=== PATIENT | female | born 1950 | race Hispanic/Latino ===

== ENCOUNTER 2025-06-28 09:57 | Inpatient (IN) | payer OTHER ==
[2025-06-28 10:54] LABS: #Basophils 0.04 10x3/uL (0.0-0.2); #Eosinophils 0.20 10x3/uL (0.0-0.7); #Monocytes 0.49 10x3/uL (0.11-0.59); #Neutrophils 3.78 10x3/uL (1.40-6.50); %Basophils 0.6 % (0.0-1.0); %Eosinophils 3.2 % (0.0-10.0); %Lymphocytes 27.2 % (21.0-51.0); %Monocytes 7.9 % (0.0-10.0); %Neutrophils 60.9 % (42.0-75.0); Hematocrit 40.3 % (36.0-47.0); Hemoglobin 13.2 g/dL (12.0-16.0); Mean Corpuscular Hemoglobin 26.0 pg (27.0-31.0); Mean Corpuscular Volume 79.5 fL (78.0-98.0); Platelet Count 198 10x3/uL (130-400); Red Blood Cell (RBC) Count 5.07 mill/uL (4.20-5.40); White Blood Cell (WBC) Count 6.21 10x3/uL (4.8-10.8)
[2025-06-28 11:16] LABS: ALT (SGPT) 19 U/L (Less than 34); AST (SGOT) 39 U/L (11-34); Albumin 2.9 g/dL (3.1-4.5); Alkaline Phosphatase 103 U/L (40-110); Anion Gap 14 mmol/L (10-20); BUN (Urea Nitrogen) 9 mg/dL (9.8-20.1); Bilirubin, Total 0.8 mg/dL (0.3-1.2); Calc. Creatinine Clearance 0 mL/min (70-130); Calcium 8.4 mg/dL (7.8-10.44); Carbon Dioxide 31 mmol/L (23-31); Chloride 101 mmol/L (98-107); Globulin 4.2 g/dL (2.4-3.5); Glucose 174 mg/dL (83-110); Magnesium 1.4 mg/dL (1.6-2.6); Potassium 2.4 mmol/L (3.5-5.1); Sodium 144 mmol/L (136-145)
[2025-06-28 11:20] LABS: Troponin I 0.026 ng/mL (< 0.028)
[2025-06-28] MEDS ORDERED: Magnesium 2 GM/50 ML BAG (IN WATER) ONE (11:47)
[2025-06-28] MEDS ORDERED: hydrALAZINE 20 MG/ML VIAL ONE (12:16)
[2025-06-28] MEDS ORDERED: NS 0.9% w/ 20 MEQ KCL 1,000 ML ONE (12:17)
[2025-06-28] MEDS ORDERED: Iopamidol-370 76% 500 ML MDV (1 ML CHARGE) ONE (12:54)
[2025-06-28] MEDS ORDERED: Acetaminophen 325 MG TAB PO PRN ×2 (13:01→13:57)
[2025-06-28] MEDS ORDERED: Ondansetron PF 4 MG/2 ML Vial IVP PRN (13:01)
[2025-06-28] MEDS ORDERED: Electrolyte Replacement Protocol 1 EACH FS SCH (13:15)
[2025-06-28] MEDS ORDERED: Glucagon 1 MG/ML KIT IM PRN (13:56)
[2025-06-28] MEDS ORDERED: Dextrose 50% Abboject 50 ML SYRINGE SLOW IVP PRN (13:56)
[2025-06-28 15:05] VITALS: BMI 23.8
[2025-06-28] MEDS: NIFEdipine XL 30 MG ER.TAB PO SCH ×2 (15:06→21:35)
[2025-06-28] MEDS ORDERED: Losartan 25 MG TAB ONE (15:08)
[2025-06-28] MEDS: Losartan 25 MG TAB PO SCH (15:10)
[2025-06-28 20:18] LABS: Anion Gap 12 mmol/L (10-20); BUN (Urea Nitrogen) 7 mg/dL (9.8-20.1); Calc. Creatinine Clearance 88 mL/min (70-130); Calcium 8.2 mg/dL (7.8-10.44); Carbon Dioxide 28 mmol/L (23-31); Chloride 105 mmol/L (98-107); Glucose 229 mg/dL (83-110); Magnesium 1.5 mg/dL (1.6-2.6); Potassium 3.0 mmol/L (3.5-5.1); Sodium 142 mmol/L (136-145)
[2025-06-28] MEDS: Famotidine/PF 20 mg/2ml Vial SLOW IVP SCH (21:28)
[2025-06-28] MEDS: Famotidine 20 MG TAB PO SCH (21:35)
[2025-06-28] MEDS: Naproxen 500 MG TAB PO PRN (22:13)
[2025-06-28 22:42] LABS: Bacteria/HPF 2+ HPF (None Seen); Glucose, Urine (Dipstick) 70 mg/dL (Negative); Leukocyte Negative Leu/uL (Negative); Protein, Urine (Dipstick) 30 mg/dL (Neg-Trace); RBC/HPF 0-3 HPF (0-3); Specific Gravity, Urine 1.021 (1.002-1.036); WBC/HPF 0-3 HPF (0-3)
[2025-06-29 04:39] LABS: Anion Gap 9 mmol/L (10-20); BUN (Urea Nitrogen) 7 mg/dL (9.8-20.1); Calc. Creatinine Clearance 102 mL/min (70-130); Calcium 7.5 mg/dL (7.8-10.44); Carbon Dioxide 29 mmol/L (23-31); Chloride 107 mmol/L (98-107); Glucose 132 mg/dL (83-110); Magnesium 1.4 mg/dL (1.6-2.6); Potassium 3.1 mmol/L (3.5-5.1); Sodium 142 mmol/L (136-145)
[2025-06-29] MEDS: Magnesium Sulfate In Water 4 GM in Premix 1 BAG IVPB SCH (08:16)
[2025-06-29] MEDS: Enoxaparin 40 MG (0.4 mL) SYRINGE SC SCH (08:16)
[2025-06-29] MEDS: Losartan 25 MG TAB PO SCH (08:17)
[2025-06-29 11:36] VITALS: BMI 23.8
[2025-06-29 17:40] LABS: Magnesium 2.4 mg/dL (1.6-2.6); Potassium 3.5 mmol/L (3.5-5.1)
[2025-06-30 07:41] LABS: Anion Gap 10 mmol/L (10-20); BUN (Urea Nitrogen) 10 mg/dL (9.8-20.1); Calc. Creatinine Clearance 83 mL/min (70-130); Calcium 7.9 mg/dL (7.8-10.44); Carbon Dioxide 27 mmol/L (23-31); Chloride 106 mmol/L (98-107); Glucose 149 mg/dL (83-110); Magnesium 2.1 mg/dL (1.6-2.6); Potassium 4.2 mmol/L (3.5-5.1); Sodium 139 mmol/L (136-145)
[2025-06-30] MEDS: glipiZIDE 5 MG TAB PO SCH (08:45)
[2025-06-30 15:27] VITALS: BP 196/81
[2025-06-30 16:36] VITALS: TEMP 98
[2025-06-30] MEDS ORDERED: Losartan 25 MG TAB PO SCH (21:00)
== END 2025-06-30 19:51 | disposition home or self-care (01) | DRG 640 ==
LOC: ERS 09:57 → OBSVTOIN 13:06 → ERHOLD 13:06 → 2SE 17:47 → UNDODISIN 06-30 15:15
PROVIDERS: ADMIT Family Medicine; ATTEND Internal Medicine
DX: E83.42 Hypomagnesemia (principal); E43 Unspecified severe protein-calorie malnutrition; I85.10 Secondary esophageal varices without bleeding; E11.9 Type 2 diabetes mellitus without complications; E03.9 Hypothyroidism, unspecified; E87.6 Hypokalemia; I10 Essential (primary) hypertension; K74.60 Unspecified cirrhosis of liver; I45.10 Unspecified right bundle-branch block; I48.91 Unspecified atrial fibrillation; Z79.01 Long term (current) use of anticoagulants; Z79.890 Hormone replacement therapy; Z79.899 Other long term (current) drug therapy; Z68.23 Body mass index [BMI] 23.0-23.9, adult
CPT/HCPCS: 36415; 36416; 71045; 74177; 80048; 80053; 81001; 83036; 83735; 84100; 84133; 84484; 85025; 93005; 96365; 96367; 96372; 96375; 96376; G0378; J0360; J1650; J1815; J3475; J3480; Q9967